=== PATIENT | female | born 1995 | race African-American/Black ===

== ENCOUNTER 2017-04-13 19:27 | Emergency (ER) | payer OTHER ==
[~2017-04-13] VITALS: Ht 162.6 cm; Wt 139.9 kg
[~2017-04-13 19:27] MED LIST: BCPILLS PO
[2017-04-13 19:33] VITALS: TEMP 36.7; Ht 162.6 cm; Wt 139.9 kg
--- NOTE | 2017-04-13 20:30 | DIAGNOSTIC IMAGING REPORT ---
CHEST 2 VIEWS ROUTINE HISTORY: cough COMPARISON: None. FINDINGS: The lungs are clear. Cardiac silhouette is normal in size. No pleural effusions. No pneumothorax. IMPRESSION: No acute process. Electronically signed by: Trino Morin M.D. 04/13/2017 8:28 PM Dictated Date/Time: 04/13/2017 8:27 PM
[2017-04-13] MEDS ORDERED: PRVHFAIN INH (20:35)
[2017-04-13] MEDS ORDERED: AMOX875T PO (21:18)
[2017-04-13] MEDS ORDERED: BENZ1CAP90 PO (21:19)
--- NOTE | 2017-04-13 21:20 | EMERGENCY ROOM VISIT NOTE ---
ED Visit Note First contact with patient: 19:50 CHIEF COMPLAINT: Nasal congestion, subjective fever, cough 1 month HISTORY OF PRESENT ILLNESS: This 21-year-old female patient presents to the emergency department ambulatory, complaining of nasal congestion, cough, and runny nose 1 month. The patient states she initially began experiencing some congestion, and thought she was experiencing allergy symptoms. She has been taking Sudafed and triamcinolone nasal spray with only mild relief of her symptoms. The patient states this evening, she noticed she had "a bad fever", but states she does not have a thermometer, she subjectively felt warm. The patient was seen proximally 2 weeks ago by urgent care and placed on amoxicillin for 10 days. She has been off of medication for approximately 4 days. She states she did not experience any improvement while on the amoxicillin. At 6 PM his evening, the patient did take 1000 mg of Tylenol, and did note improvement in her symptoms. The patient also complains of headache, pressure in her sinuses, congestion, sore throat, runny nose, and cough, productive of thick yellow mucus. She does report some mild wheezing, and has been using her albuterol inhaler. They deny any other symptoms including swollen lymph nodes, nausea, or vomiting. There is pain with swallowing and the patient is having difficulty eating. The patient does not recall any known exposure to strep throat. Denies a rash. REVIEW OF SYSTEMS: A 10 system review of systems was performed with positives and pertinent negatives listed in the history of present illness. All other systems were reviewed and are negative. ALLERGIES: Loracarbef MEDICATIONS: Albuterol PMH: Asthma SOCIAL HISTORY: The patient is a [employer] student. She lives with her roommate. She denies drug, alcohol, tobacco use. PHYSICAL EXAM: VITALS: Vitals are noted on the nurse's note and reviewed by myself. Vital signs stable. GENERAL: This is a 21-year-old female, in no acute distress, nondiaphoretic, well-developed well-nourished. SKIN: The skin was without rashes, erythema, edema, or bruising. There is no tenting of the skin. Capillary reflex less than 2 seconds. HEAD: Normocephalic atraumatic. EARS: External auditory canals clear, tympanic membranes pearly hernández without erythema or effusion bilaterally. EYES: Pupils equal round and reactive to light and accommodation. Conjunctivae without injection, sclerae without icterus. Extraocular movements intact. NOSE: Patent, turbinates mildly inflamed, but pale. There was no erythema or purulent drainage noted. No sinus tenderness. MOUTH: Mucous membranes moist. Tonsils are not enlarged. Pharynx without erythema or exudate. Uvula midline. Airway patent. Tongue does not deviate. NECK: Supple without nuchal rigidity. No lymphadenopathy. No thyromegaly. Cervical spine is nontender. No JVD. HEART: Regular rate and rhythm without murmurs gallops or rubs. LUNGS: Very mild wheezing noted. No rhonchi or rales. No dullness to percussion. No retractions or accessory muscle use. MUSCULOSKELETAL: No muscle atrophy, erythema, or edema noted. Full range of motion without joint tenderness in all extremities. No tenderness to palpation. Normal gait. Strength 5/5 throughout. NEURO: Patient was alert and oriented to person place and time. Normal sensation to light and sharp touch. No focal neurological deficits. RADIOLOGY: CHEST 2 VIEWS ROUTINE HISTORY: cough COMPARISON: None. FINDINGS: The lungs are clear. Cardiac silhouette is normal in size. No pleural effusions. No pneumothorax. IMPRESSION: No acute process. Electronically signed by: Trino Morin M.D. 04/13/2017 8:28 PM Dictated Date/Time: 04/13/2017 8:27 PM EMERGENCY DEPARTMENT COURSE: The patient was seen and evaluated as above. Chest x-ray was ordered and reviewed due to productive cough 1 month. This was negative for pneumonia. Influenza swab was obtained and tested, and was negative. Based on the patient's examination and history, I do suspect allergic rhinitis as the cause of her symptoms. She was afebrile here in the emergency department, but she did have Tylenol prior to arrival. I did provide the patient with a prescription for Augmentin to be used if her fever continues , but did advise her that she needs to purchase a thermometer so that she can properly monitor her fever. I advised the patient to begin taking Zyrtec 10 mg daily and use OTC medications as outlined for her symptoms. The patient was in agreement with this plan, and all questions were answered to her satisfaction. Discharge instructions reviewed, and the patient was discharged home in good condition. DIFFERENTIAL DIAGNOSIS: Pneumonia, influenza, allergic rhinitis, otitis media, bronchitis, tracheobronchitis, acute sinusitis, Acute pharyngitis, URI, Viral pharyngitis, Strep Pharyngitis, [id number] Disease, Peritonsillar abscess, tonsilitis, malignancy, and others DIAGNOSIS: Acute tracheobronchitis, allergic rhinitis Current/Historical Medications Scheduled Amoxicillin & Pot Clavulanate (Augmentin 875-125 mg), 1 TAB PO BID Scheduled PRN Albuterol (Ventolin Hfa), 2 PUFFS INH UD PRN for Rescue Benzonatate (Tessalon Perles), 200 MG PO TID PRN for Cough Allergies Coded Allergies: Loracarbef (Unverified Adverse Reaction, Intermediate, hives, 01/23/15) Vital Signs Date Time Temp Pulse Resp B/P (MAP) Pulse Ox O2 Delivery O2 Flow Rate FiO2 04/13/17 21:31 135/90 04/13/17 21:31 91 20 135/90 98 04/13/17 21:27 90 22 96 04/13/17 21:12 90 98 04/13/17 21:02 127/77 04/13/17 20:57 95 97 04/13/17 20:42 90 98 04/13/17 20:32 133/83 04/13/17 20:27 79 100 Room Air 04/13/17 20:00 146/92 04/13/17 19:33 36.7 95 18 138/90 99 Room Air Laboratory Results Test 04/13/17 20:25 Influenza Type A Antigen Neg for Influ A (NEG) Influenza Type B Antigen Neg for Influ B (NEG) Departure Information Impression Primary Impression: Allergic rhinitis Additional Impression: Acute tracheobronchitis Dispostion Home / Self-Care Condition GOOD Prescriptions Benzonatate (Tessalon Perles) 200 Mg Cap 200 MG PO TID Y for Cough, #30 CAP Prov: Vicenta Hooper PA-C 04/13/17 Amoxicillin & Pot Clavulanate (Augmentin 875-125 mg) 1 Tab Tab 1 TAB PO BID for 10 Days, #20 TAB Prov: Vicenta Hooper PA-C 04/13/17 Referrals [facility] (PCP) Patient Instructions ED Rhinitis Allergic Ch, ED Upper Resp Infec No Abx Tx, My [facility] Additional Instructions You were seen and evaluated in the emergency department today for an upper respiratory infection. I do feel that based on your symptoms, and the duration of illness, this is likely viral in nature. As discussed, antibiotics will not treat viral illness. Use your albuterol inhaler for wheezing or difficulty breathing. Use this inhaler 1-2 puffs every 4-6 hours as needed. If you find that your symptoms are not improving with the use of the inhaler, or if you find that you need to use the inhaler longer than 1 week, return to the ED or follow-up with your PCP. Use Cetirizine (Zyrtec) 10mg daily to help with allergy symptoms. You have been given benzonatate (Tessalon Pearles) to be used for coughing. These should be taken 1 capsule up to 3 times per day as needed for coughing. Do not take this medication more than prescribed. You may use this medication in addition to OTC cough medications. For your sore throat, you may use a 1:1 mixture of liquid Benadryl and liquid Maalox. Gargle and spit this mixture. It will help to soothe the throat and provide some relief. Drink warm tea with honey and lemon, as this will also help to soothe the throat. Gargle with salt water frequently. As discussed, you should take OTC Mucinex and/or Sudafed for your symptoms. Please do not exceed the recommended daily dosages. Ibuprofen(Motrin, Advil) may be used for fever or pain. Use 600mg every six hours as needed. Take with food. Avoid using more than 2400mg in a 24 hour period. Do not use 2400mg per day for more than three consecutive days without physician direction. Prolonged inappropriate use can lead to stomach upset or ulcers. You may take Naproxen 1-[address] tablets twice daily in place of ibuprofen. This medication will help with the swelling in your sinuses. (AND/OR) Acetaminophen(Tylenol) may be used for fever or pain. Use 1000mg every six hours as needed. Avoid using more than 3000mg in a 24 hour period. For congestion, you may use Flonase OTC. You may want to consider zinc, echinacea, and vitamin C to help boost your immunity. Please get plenty of rest and drink plenty of fluids. Amoxicillin Clavulanate (Augmentin) 875mg: Take one pill twice daily for 10 days for your infection ONLY IF you are not experiencing improvement after the weekend or your symptoms worsen over the weekend. All antibiotics can cause diarrhea. If this occurs and you feel worse or it does not resolve in 1-2 days follow up with your doctor or return to the Emergency Department as this could be signs of serious underlying problems. Any medication can cause an allergic reaction, stop the pills immediately and return to the ER for rash, hives, breathing difficulties, or swelling. Please return or follow-up with your PCP in 1 week if you are not experiencing any improvement in your symptoms. Return to the emergency department for coughing up blood, difficulty breathing, chest pain, worsening symptoms, or for other concerns. Problem Qualifiers Primary Impression: Allergic rhinitis Chronicity: acute Allergic rhinitis trigger: unspecified Allergic rhinitis seasonality: unspecified seasonality Qualified Codes: J30.9 - Allergic rhinitis, unspecified
[2017-04-13 21:31] VITALS: BP 135/90; PULSE 91; O2SAT 98
== END 2017-04-13 21:32 | disposition home or self-care (01) ==
LOC: C.EDB 19:29 → C.EDC 21:32
DX: J30.9 Allergic rhinitis, unspecified (principal); J20.8 Acute bronchitis due to other specified organisms; J45.909 Unspecified asthma, uncomplicated